=== PATIENT | male | born 1950 | race Caucasian/White ===

== ENCOUNTER 2018-01-16 07:30 | Day surgery (SDC) | payer MEDICARE, OTHER ==
[~2018-01-16] VITALS: Ht 180.3 cm; Wt 70.5 kg
[~2018-01-16 07:30] MED LIST: RINGERS SOLUTION,LACTATED 1,000 ML IV ONE
[2018-01-16 08:11] LABS: BASOPHILS % (AUTO) 0.4 % (0.0-2.0); EOSINOPHILS % (AUTO) 3.5 % (1.0-6.0); HEMATOCRIT 40.9 % (41-53); HEMOGLOBIN 14.5 g/dL (13.5-17.5); LYMPHOCYTES # (AUTO) 1.5 K/uL (1.0-4.8); MEAN CORPUSCULAR HEMOGLOBIN 37.7 pg (26.0-34.0); MEAN CORPUSCULAR HGB CONC 35.5 G/dL (31.0-37.0); MEAN CORPUSCULAR VOLUME 106 fL (80-100); MONOCYTES # (AUTO) 0.7 K/uL (0.1-1.0); NEUTROPHILS # (AUTO) 4.5 K/uL (1.8-7.7); NEUTROPHILS % (AUTO) 64.1 % (40.0-70.0); PLATELET COUNT (AUTO) 219 K/uL (150-450); RED BLOOD CELL COUNT(AUTO) 3.86 MIL/uL (4.50-5.90); RED CELL DISTRIBUTION WIDTH 12.9 % (11.5-14.5)
[2018-01-16 08:16] LABS: ANION GAP 3 mmol/L (8-16); CALCIUM, TOTAL 8.9 mg/dL (8.8-10.5); CARBON DIOXIDE 32 mmol/L (22-29); CHLORIDE 100 mmol/L (98-107); CREATININE 0.76 mg/dL (0.60-1.30); GLOMERULAR FILTR. RATE CALC > 60 mL/min (>60); GLUCOSE,RANDOM 94 mg/dL (70-110); SODIUM SERUM 135 mmol/L (136-145); UREA NITROGEN, BLOOD 7 mg/dL (7-18)
[2018-01-16] MEDS ORDERED: RINGERS SOLUTION,LACTATED 1,000 ML IV ONE (08:30)
[2018-01-16] MEDS ORDERED: BUPIVACAINE HCL/PF 0.5% 30 ML VIAL ONE (09:14)
[2018-01-16] MEDS ORDERED: VANCOMYCIN HCL 1 GM/VIAL ONE (09:14)
[2018-01-16] MEDS ORDERED: MEPERIDINE HCL/PF 25 MG/0.5 ML AMP IVP PRN (09:45)
[2018-01-16] MEDS ORDERED: GABAPENTIN 100 MG CAPSULE PO ONE (09:45)
[2018-01-16] MEDS ORDERED: OXYGEN THERAPY IH SCH (09:45)
[2018-01-16] MEDS ORDERED: ZOLPIDEM TARTRATE 10 MG TABLET PO PRN (10:15)
[2018-01-16] MEDS ORDERED: DiphenhydrAMINE HCL 50 MG/ML VIAL IVP PRN (10:15)
[2018-01-16] MEDS ORDERED: MAG HYDROX/AL HYDROX/SIMETH 30 ML SUSP UDCUP PO PRN (10:15)
[2018-01-16] MEDS ORDERED: BUPIVACAINE LIPOSOME/PF 1.3%-13.3MG/ML SUSPENSION 20 ML VIAL INJ ONE (11:00)
[2018-01-16] MEDS ORDERED: HYDROmorphone 2 MG/ML SYRINGE ONE (11:29)
[2018-01-16] MEDS: HYDROmorphone 2 MG/ML SYRINGE IVP PRN ×2 (11:31→11:40)
[2018-01-16] MEDS ORDERED: FentaNYL CITRATE-PF 100 MCG/2 ML VIAL ONE (11:41)
[2018-01-16] MEDS: FentaNYL CITRATE-PF 100 MCG/2 ML VIAL IVP PRN ×2 (11:44→11:49)
[2018-01-16] MEDS ORDERED: DIAZEPAM 5 MG/ML 2 ML SYRINGE IVP STA (12:00)
[2018-01-16] MEDS ORDERED: MIDAZOLAM HCL 2 MG/2 ML VIAL IVP ONE (12:00)
[2018-01-16] MEDS ORDERED: NEOSTIGMINE METHYLSULFATE 1 MG/ML 10 ML VIAL IVP ONE (12:00)
[2018-01-16] MEDS ORDERED: PHENYLEPHRINE HCL 10 MG/ML VIAL IVP ONE (12:00)
[2018-01-16] MEDS ORDERED: PROPOFOL 1% 20 ML VIAL IVP ONE (12:00)
[2018-01-16] MEDS ORDERED: EPHEDrine SULFATE 50 MG/ML VIAL IVP ONE (12:00)
[2018-01-16] MEDS ORDERED: FentaNYL CITRATE-PF 100 MCG/2 ML VIAL IVP ONE (12:00)
[2018-01-16] MEDS ORDERED: GLYCOPYRROLATE 0.2 MG/ML VIAL IM ONE (12:00)
[2018-01-16] MEDS ORDERED: SUCCINYLCHOLINE CHLORIDE 20 MG/ML 10 ML VIAL IVP ONE (12:00)
[2018-01-16] MEDS ORDERED: ROCURONIUM BROMIDE 10 MG/ML 5 ML VIAL IVP ONE (12:00)
[2018-01-16] MEDS ORDERED: METOCLOPRAMIDE HCL 5 MG/ML 2 ML VIAL IVP ONE (12:00)
[2018-01-16] MEDS ORDERED: DEXAMETHASONE SOD PHOS 4 MG/ML VIAL IVP ONE (12:00)
[2018-01-16] MEDS ORDERED: HYDROmorphone 2 MG/ML SYRINGE IVP ONE (13:00)
== END 2018-01-16 13:50 | disposition home or self-care (01) ==
LOC: SURGERY 07:30 → EDSTATUS 11:30 → SURGERY 13:50
PROVIDERS: ATTEND Orthopaedic Surgery Orthopaedic Surgery of the Spine
DX: M48.061 Spinal stenosis, lumbar region without neurogenic claudication (principal); M54.41 Lumbago with sciatica, right side; F12.21 Cannabis dependence, in remission; Z91.041 Radiographic dye allergy status; Z88.2 Allergy status to sulfonamides; Z72.89 Other problems related to lifestyle; Z90.89 Acquired absence of other organs; Z90.49 Acquired absence of other specified parts of digestive tract; Z98.890 Other specified postprocedural states; Z79.891 Long term (current) use of opiate analgesic; Z79.899 Other long term (current) drug therapy
CPT/HCPCS: 36415; 63030; 80048; 85025; 87081; 93005; C9290; J0330; J0690; J1100; J1170; J1885; J2250; J2370; J2704; J2765; J3010; J3370; J3490 ×4; J7120